=== PATIENT | male | born 1950 ===

== ENCOUNTER 2019-05-27 13:43 | Outpatient (CLI) | payer MEDICARE ==
[2019-05-27] MEDS ORDERED: Testosterone Cypionate 200 MG/ML MDV IM SCH (14:00)
[2019-05-27 14:08] VITALS: BP 116/89; PULSE 91
== END 2019-05-27 14:15 | disposition home or self-care (01) ==
LOC: LB.ACU 13:43
PROVIDERS: ATTEND Family Medicine
DX: E29.1 Testicular hypofunction (principal)
CPT/HCPCS: 96372; J1071